=== PATIENT | female | born 1990 | race American Indian/Alaskan Native ===

== ENCOUNTER 2017-05-31 10:10 | Emergency (ER) | payer MEDICAID ==
[2017-05-31 11:42] VITALS: BP 151/84
== END 2017-05-31 11:00 | disposition left against medical advice (07) ==
LOC: ED 10:10
DX: R10.9 Unspecified abdominal pain (principal); Z53.21 Procedure and treatment not carried out due to patient leaving prior to being seen by health care provider

== ENCOUNTER 2021-02-27 13:33 | Emergency (ER) | payer MEDICAID ==
--- NOTE | 2021-02-27 14:12 | Emergency Department Report ---
ED Psych HPI - General Chief Complaint: Psych Stated Complaint: PSYCH Time Seen by Provider: 02/27/21 13:55 Source: EMS Mode of arrival: Stretcher - History of Present Illness Initial Comments: Patient is 30 years old female with history of depression. Patient brought to the emergency room via EMS. EMS stated that patient family stated that she did not sleep for the last 4 days. When family decided to take her to the emergency room for evaluation and she realized that she is coming for evaluation she became very agitated and tried to jump off the car. EMS stated that patient was very agitated and have to be sedated with Haldol, Benadryl and Versed. Upon arrival to the ER patient is obtunded however her vital signs stable. Patient is unable to provide history at this moment. MD Complaint: suicidal ideation, feels depressed, altered mental status -: days(s) Associated Psychiatric Symptoms: depression, suicidal ideation - Related Data Home Medications Medication Instructions Recorded Confirmed Last Taken No Known Home Medications [No 04/13/13 02/27/21 Unknown Reported Home Medications] Allergies Allergy/AdvReac Type Severity Reaction Status Date / Time No Known Allergies Allergy Unverified 04/13/13 00:19 ED Review of Systems ROS: Stated complaint: PSYCH Other details as noted in HPI Comment: Unobtainable due to pts medical conditions ED Past Medical Hx - Past Medical History Hx Hypertension: No Hx Diabetes: No Hx Deep Vein Thrombosis: No Hx Renal Disease: No Hx Sickle Cell Disease: No Hx Seizures: No Hx Asthma: No Hx HIV: No - Surgical History Additional Surgical History: angioplasty - Social History Smoking Status: Never Smoker Substance Use Type: None - Medications Home Medications: Home Medications Medication Instructions Recorded Confirmed Last Taken Type No Known Home Medications [No 04/13/13 02/27/21 Unknown History Reported Home Medications] ED Physical Exam - General Limitations: No Limitations General appearance: obtunded - Head Head exam: Present: atraumatic, normocephalic, normal inspection - Eye Eye exam: Present: normal appearance - ENT ENT exam: Present: normal exam, normal orophraynx, mucous membranes moist - Neck Neck exam: Present: normal inspection, full ROM. Absent: tenderness, meningismus - Respiratory Respiratory exam: Present: normal lung sounds bilaterally - Cardiovascular Cardiovascular Exam: Present: regular rate, normal rhythm, normal heart sounds - GI/Abdominal GI/Abdominal exam: Present: soft, normal bowel sounds. Absent: distended, tenderness, guarding, rebound, rigid, mass, bruit, pulsatile mass, hernia - Extremities Exam Extremities exam: Present: normal inspection, full ROM, normal capillary refill - Back Exam Back exam: Present: normal inspection, full ROM. Absent: CVA tenderness (R), CVA tenderness (L) - Psychiatric Psychiatric exam: Present: manic - Skin Skin exam: Present: warm, intact, normal color ED Course Vital Signs 02/27/21 02/27/21 02/27/21 14:09 14:27 20:16 Temperature 98.3 F 98.6 F Pulse Rate 72 85 Respiratory 20 18 Rate Blood Pressure 124/86 133/75 [Right] O2 Sat by Pulse 100 100 100 Oximetry 02/28/21 02/28/21 02:30 08:29 Temperature 98.6 F 97.6 F Pulse Rate 85 88 Respiratory 18 20 Rate Blood Pressure 133/75 122/70 [Right] O2 Sat by Pulse 100 100 Oximetry ED Medical Decision Making - Lab Data Result diagrams: 02/27/21 18:17 02/27/21 18:17 Critical care attestation.: If time is entered above; I have spent that time in minutes in the direct care of this critically ill patient, excluding procedure time. ED Disposition Clinical Impression: Acute psychosis Disposition: [address] [place] [address] Is pt being admited?: No Condition: Stable
[2021-02-27 18:52] LABS: Basophils % (Auto) 0.3 % (0.0-1.8); Hematocrit 39.8 % (30.3-42.9); Hemoglobin 12.6 gm/dl (10.1-14.3); Lymphocytes # (Auto) 2.3 K/mm3 (1.2-5.4); Lymphocytes % (Auto) 18.3 % (13.4-35.0); Mean Corpuscular HGB Conc 32 % (30-34); Mean Corpuscular Volume 83 fl (79-97); Monocytes # (Auto) 1.1 K/mm3 (0.0-0.8); Monocytes % (Auto) 8.5 % (0.0-7.3); Platelet Count 244 K/mm3 (140-440); Red Blood Count 4.77 M/mm3 (3.65-5.03)
[2021-02-27 19:53] LABS: BUN/Creatinine Ratio 12; Blood Urea Nitrogen 11 mg/dL (7-17); Calcium 9.6 mg/dL (8.4-10.2); Hemolysis Index 17
[2021-02-27 23:08] LABS: Bacteria,Urine 1+ /HPF (Negative); Bilirubin,Urine NEG (Negative); Blood,Urine NEG (Negative); Color,Urine Yellow (Yellow); Mucus,Urine 3+ /HPF
[2021-02-27 23:29] LABS: Amphetamine Screen,Urine PRESUMPTIVE NEGATIVE; Benzodiazepines Screen,Urine PRESUMPTIVE POSITIVE; Cannabinoid Screen,Urine PRESUMPTIVE POSITIVE; Cocaine Screen,Urine PRESUMPTIVE NEGATIVE; Methadone Screen,Urine PRESUMPTIVE NEGATIVE; Opiate Screen,Urine PRESUMPTIVE NEGATIVE
[2021-02-28 08:30] VITALS: BP 122/70
--- NOTE | 2021-02-28 10:23 | Consultation ---
History of Present Illness - Reason for Consult Consult date: 02/28/21 Reason for consult: psychosis - History of Present Psychiatric Illness Ngozi Perry is a 30y/o female patient. The patient is acutely psychotic. She appears delusional. She is difficulty to follow. She has some thought- blocking. She says she was brought in to get an evaluation. 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 I ask the patient what did she mean by going down to one percent, she says "because I'm in that one percent who actually love their children." She the tells me that she was afraid and felt like a hostage because the system had taken her children and she felt they would take her. She says "I thought I was going to get attacked." She denies any psych history or ever being on any psych meds. She also denies ever being admitted into a psych hospital. She denies SI/HI or hallucinations of any kind. 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 They are telling me to save her." PAST PSYCHIATRIC HISTORY: Diagnoses: Denies Suicide attempts or Self-harm behavior: Denies Prior psychiatric hospitalizations: Denies Substance Abuse history: Denies Previous psychiatric medications tried: Denies Outpatient treatment: Denies PAST MEDICAL HISTORY: None reported or document Family Psychiatric History: None reported or documented SOCIAL HISTORY Marital Status: Single Living Arrangements: Lives with family Employment Status: Employed Access to guns/weapons: Denies Education: History of Abuse: Denies Legal History: Denies REVIEW OF SYSTEMS Constitutional: Negative for weight loss ENT: Negative for stridor Respiratory: Negative for cough or hemoptysis All other systems reviewed and are negative MENTAL STATUS EXAMINATION General Appearance and Behavior: Age appropriate, good hygiene, wearing appro priate clothes. calm and cooperative Cooperation: cooperative Psychomotor Behavior: Psychomotor normal Mood: okay Affect and affective range: congruent with stated mood Thought Process: illogical, thought-blocking Thought Content: hallucinations, responding to internal stimuli Speech: Normal volume, Regular rate and rhythm, Suicidal Ideation: Denies Homicidal Ideation: Denies Hallucinations: Auditory (but denies) Delusions: none elicited Impulse Control: Unimpaired Insight and Judgment: Limited Memory: limited Attention: Attentive Orientation: alert and oriented Assessment and Plan (1) Acute Psychosis Treatment Plan 1013 Prozac 10mg po daily Trazodone 50mg po qhs Melatonin 5mg po qhs prn insomnia Abilify 5mg po daily Sitter: per primary Medical: per primary Disposition: Recommend acute psychiatric inpatient treatment Will follow. Thanks for this consult. Case staffed with Dr. Lance Medications and Allergies Allergies Allergy/AdvReac Type Severity Reaction Status Date / Time No Known Allergies Allergy Unverified 04/13/13 00:19 Home Medications Medication Instructions Recorded Confirmed Last Taken Type No Known Home Medications [No 04/13/13 02/27/21 Unknown History Reported Home Medications] Mental Status Exam - Vital signs Last Vital Signs Temp 97.6 F 02/28/21 08:29 Pulse 88 02/28/21 08:29 Resp 20 02/28/21 08:29 BP 122/70 02/28/21 08:29 Pulse Ox 100 02/28/21 08:29 Results Result Diagrams: 02/27/21 18:17 02/27/21 18:17 Abnormal lab results 02/27/21 02/27/21 02/27/21 Range/Units 18:17 18:17 18:17 WBC 12.4 H (4.5-11.0) K/mm3 MCH 27 L (28-32) pg RDW 17.0 H (13.2-15.2) % [place] % (Auto) 8.5 H (0.0-7.3) % [place] # (Auto) 1.1 H (0.0-0.8) K/mm3 Seg Neutrophils % 72.9 H (40.0-70.0) % Seg Neutrophils # 9.0 H (1.8-7.7) K/mm3 Potassium 3.3 L (3.6-5.0) mmol/L Carbon Dioxide 18 L (22-30) mmol/L Salicylates < 0.3 L (2.8-20.0) mg/dL Acetaminophen (10.0-30.0) ug/mL 02/27/21 Range/Units 18:17 WBC (4.5-11.0) K/mm3 MCH (28-32) pg RDW (13.2-15.2) % [place] % (Auto) (0.0-7.3) % [place] # (Auto) (0.0-0.8) K/mm3 Seg Neutrophils % (40.0-70.0) % Seg Neutrophils # (1.8-7.7) K/mm3 Potassium (3.6-5.0) mmol/L Carbon Dioxide (22-30) mmol/L Salicylates (2.8-20.0) mg/dL Acetaminophen 5.0 L (10.0-30.0) ug/mL All other labs normal.
[2021-02-28] MEDS ORDERED: FLUoxetine 10 MG TAB PO SCH (11:00)
[2021-02-28] MEDS ORDERED: hydrOXYzine PAMOATE 25 MG CAP PO SCH (11:00)
[2021-02-28] MEDS ORDERED: ARIPiprazole 5 MG TAB PO SCH (11:00)
[2021-02-28] MEDS ORDERED: traZODone 50 MG TAB PO SCH (22:00)
[2021-02-28] MEDS ORDERED: MELATONIN 5 MG TAB PO PRN (22:00)
== END 2021-02-28 18:57 ==
LOC: EEVIPCON 13:33 → ED 13:33
DX: F23 Brief psychotic disorder (principal); Z20.822 Contact with and (suspected) exposure to COVID-19
CPT/HCPCS: 36415; 80048; 80307; 81001; 84703; 85025; 99284; Q0177; U0003; 80320; G0480